=== PATIENT | female | born 2000 | race Caucasian/White ===

== ENCOUNTER 2024-05-27 04:23 | Emergency (ER) | payer BC ==
[~2024-05-27] VITALS: Ht 162.6 cm; Wt 68.5 kg
[2024-05-27 04:55] VITALS: TEMP 98.5
[2024-05-27] MEDS ORDERED: ONDANSETRON 4 MG TAB.RAPDIS ONE (04:58)
[2024-05-27] MEDS: ONDANSETRON 4 MG TAB.RAPDIS SL ONE (04:59)
[2024-05-27 05:39] VITALS: BP 120/64; O2SAT 100
== END 2024-05-27 06:49 | disposition home or self-care (01) ==
LOC: ER 04:26
DX: G44.309 Post-traumatic headache, unspecified, not intractable (principal); M54.2 Cervicalgia; R11.0 Nausea; Z60.2 Problems related to living alone; W18.39XA Other fall on same level, initial encounter; Y93.89 Activity, other specified; Y92.89 Other specified places as the place of occurrence of the external cause; Y99.8 Other external cause status
CPT/HCPCS: 99283; L0172; Q0162